=== PATIENT | female | born 1980 | race American Indian/Alaskan Native ===

== ENCOUNTER 2020-05-09 02:58 | Emergency (ER) | payer BC ==
[2020-05-09 03:06] VITALS: BP 156/86
[2020-05-09 03:25] LABS: Basophils # (Auto) 0.1 K/mm3 (0.0-0.1); Basophils % (Auto) 0.6 % (0.0-1.8); Eosinophils # (Auto) 0.1 K/mm3 (0.0-0.4); Eosinophils % (Auto) 0.9 % (0.0-4.3); Hematocrit 40.9 % (30.3-42.9); Lymphocytes % (Auto) 31.8 % (13.4-35.0); Mean Corpuscular HGB Conc 32 % (30-34); Mean Corpuscular Volume 73 fl (79-97); Monocytes # (Auto) 0.7 K/mm3 (0.0-0.8); Monocytes % (Auto) 7.7 % (0.0-7.3); Platelet Count 222 K/mm3 (140-440); Red Blood Count 5.58 M/mm3 (3.65-5.03); Red Cell Distribution Width 14.8 % (13.2-15.2)
[2020-05-09 03:47] LABS: Alanine Aminotransferase 14 units/L (7-56); Albumin 3.7 g/dL (3.9-5); BUN/Creatinine Ratio 14; Blood Urea Nitrogen 11 mg/dL (7-17); Hemolysis Index 3
[2020-05-09 04:12] LABS: Bilirubin,Urine NEG (Negative); Blood,Urine SM (Negative); Color,Urine Yellow (Yellow); Protein,Urine <15 mg/dL mg/dL (Negative); WBC,Urine < 1.0 /HPF (0.0-6.0)
--- NOTE | 2020-05-09 04:52 | XRay Report ---
ABDOMEN SUPINE INDICATION / CLINICAL INFORMATION: abd pain LLQ. COMPARISON: None available. FINDINGS: Surgical clips in the right upper quadrant. Bowel gas pattern is unremarkable, not indicative of obst ruction. No gross abnormal mass. Signer Name: Jarrett Alves MD Signed: 05/09/2020 4:48 AM Workstation Name: [id number]
[2020-05-09] MEDS ORDERED: ONDANSETRON 4 MG ODT TAB PO ONE (05:08)
[2020-05-09] MEDS ORDERED: ONDANSETRON 4 MG ODT TAB ONE (05:09)
--- NOTE | 2020-05-09 05:18 | Emergency Department Report ---
ED Abdominal Pain HPI - General Chief Complaint: Abdominal Pain Stated Complaint: ABDOMINAL PAIN Time Seen by Provider: 05/09/20 03:45 Source: patient Mode of arrival: Ambulatory Limitations: No Limitations - History of Present Illness Initial Comments: Mr. Perkins is a 48-year-old female who presents with left flank pain times 3 days there is no fever no chills no nausea vomiting patient states history of recurring constipation, last bowel movement was yesterdayg large moderate size firm., There is no hemoptysis no melena patient does have history of diverticulitis however there is been no fever, chills, or vomiting. symptoms are exacerbated by nothing symptoms are relived by nothing tried, pt states she is followed by GI but has not seen in 2 months , current symptoms rated at 4/10 nausea MD Complaint: flank pain Onset/Timin -: week(s) - Related Data Previous Rx's Medication Instructions Recorded Last Taken Type Dicyclomine [Bentyl] 10 mg PO QID #30 capsule 05/09/20 Unknown Rx Famotidine [Pepcid] 20 mg PO BID #30 tablet 05/09/20 Unknown Rx Naproxen 500 mg PO BID PRN #30 tablet 05/09/20 Unknown Rx Ondansetron [Zofran Odt] 4 mg PO Q8HR #12 tab.rapdis 05/09/20 Unknown Rx Allergies Allergy/AdvReac Type Severity Reaction Status Date / Time No Known Allergies Allergy Verified 05/09/20 03:05 ED Review of Systems ROS: Stated complaint: ABDOMINAL PAIN Other details as noted in HPI ED Past Medical Hx - Past Medical History Previous Medical History?: Yes Hx Seizures: Yes Additional medical history: diverticulitis - Surgical History Past Surgical History?: No - Social History Smoking Status: Never Smoker Substance Use Type: None - Medications Home Medications: Home Medications Medication Instructions Recorded Confirmed Last Taken Type Dicyclomine [Bentyl] 10 mg PO QID #30 capsule 05/09/20 Unknown Rx Famotidine [Pepcid] 20 mg PO BID #30 tablet 05/09/20 Unknown Rx Naproxen 500 mg PO BID PRN #30 tablet 05/09/20 Unknown Rx Ondansetron [Zofran Odt] 4 mg PO Q8HR #12 tab.rapdis 05/09/20 Unknown Rx ED Physical Exam - General Limitations: No Limitations ED Course Vital Signs 05/09/20 03:02 Temperature 97.9 F Pulse Rate 77 Respiratory 18 Rate Blood Pressure 156/86 O2 Sat by Pulse 100 Oximetry ED Medical Decision Making - Lab Data Result diagrams: 05/09/20 03:06 05/09/20 03:06 Labs 05/09/20 05/09/20 05/09/20 03:06 03:06 03:06 WBC 9.5 RBC 5.58 H Hgb 13.0 Hct 40.9 MCV 73 L MCH 23 L MCHC 32 RDW 14.8 Plt Count 222 Lymph % (Auto) 31.8 [place] % (Auto) 7.7 H Eos % (Auto) 0.9 Baso % (Auto) 0.6 Lymph # 3.0 [place] # 0.7 Eos # 0.1 Baso # 0.1 Seg Neutrophils % 59.0 Seg Neutrophils # 5.6 Sodium 141 Potassium 3.9 Chloride 103.4 Carbon Dioxide 26 Anion Gap 16 BUN 11 Creatinine 0.8 Estimated GFR > 60 BUN/Creatinine Ratio 14 Glucose 93 Calcium 9.0 Total Bilirubin 0.30 AST 18 ALT 14 Alkaline Phosphatase 49 Total Protein 7.3 Albumin 3.7 L Albumin/Globulin Ratio 1.0 HCG, Qual Negative Urine Color Urine Turbidity Urine pH Ur Specific [place] Urine Protein Urine Glucose (UA) Urine Ketones Urine Blood Urine Nitrite Urine Bilirubin Urine Urobilinogen Ur Leukocyte Esterase Urine WBC (Auto) Urine RBC (Auto) U Epithel Cells (Auto) 05/09/20 03:55 WBC RBC Hgb Hct MCV MCH MCHC RDW Plt Count Lymph % (Auto) [place] % (Auto) Eos % (Auto) Baso % (Auto) Lymph # [place] # Eos # Baso # Seg Neutrophils % Seg Neutrophils # Sodium Potassium Chloride Carbon Dioxide Anion Gap BUN Creatinine Estimated GFR BUN/Creatinine Ratio Glucose Calcium Total Bilirubin AST ALT Alkaline Phosphatase Total Protein Albumin Albumin/Globulin Ratio HCG, Qual Urine Color Yellow Urine Turbidity Clear Urine pH 6.0 Ur Specific [place] 1.016 Urine Protein <15 mg/dl Urine Glucose (UA) Neg Urine Ketones Neg Urine Blood Sm Urine Nitrite Neg Urine Bilirubin Neg Urine Urobilinogen 2.0 Ur Leukocyte Esterase Neg Urine WBC (Auto) < 1.0 Urine RBC (Auto) 2.0 U Epithel Cells (Auto) < 1.0 - Radiology Data Radiology results: report reviewed, image reviewed Findings Reporting MD: Jarrett Alves Dictation Time: May 09, 2020 03:48 Mine Supervisor: Not available [employer]er Date: ABDOMEN SUPINE INDICATION / CLINICAL INFORMATION: abd pain LLQ. COMPARISON: None available. FINDINGS: Surgical clips in the right upper quadrant. Bowel gas pattern is unremarkable, not indicative of obstruction. No gross abnormal mass. Signer Name: Jarrett Alves MD Signed: 05/09/2020 3:48 AM Workstation Name: [id number] - Medical Decision Making All labs are normal, KUB is normal, pain is improved. Plan DC to home with prescription for Bentyl, Zofran, Pepcid, follow-up with GI. Continue to hydrate as directed. Patient is tolerating p.o. hydration at this time without symptoms. Patient will be DC'd home in stable condition at this time Critical care attestation.: If time is entered above; I have spent that time in minutes in the direct care of this critically ill patient, excluding procedure time. ED Disposition Clinical Impression: Abdominal pain Qualifiers: Abdominal location: left upper quadrant Qualified Code(s): R10.12 - Left upper quadrant pain Disposition: DC-01 TO HOME OR SELFCARE Is pt being admited?: No Does the pt Need Aspirin: No (d) Condition: Stable Instructions: Abdominal Pain (ED) Prescriptions: Dicyclomine [Bentyl] 10 mg PO QID #30 capsule Naproxen 500 mg PO BID PRN #30 tablet PRN Reason: pain Famotidine [Pepcid] 20 mg PO BID #30 tablet Ondansetron [Zofran Odt] 4 mg PO Q8HR #12 tab.rapdis Referrals: [facility] [Provider Group] - 3-5 Days Forms: Work/School Release Form(ED) Time of Disposition: 05:34
== END 2020-05-09 05:47 | disposition home or self-care (01) ==
LOC: ED 02:58
DX: R10.32 Left lower quadrant pain (principal); Z86.69 Personal history of other diseases of the nervous system and sense organs; Z79.899 Other long term (current) drug therapy
CPT/HCPCS: 36415; 74018; 80053; 81001; 84703; 85025; 96374; 99284; J2060; Q0162